=== PATIENT | female | born 1980 | race Caucasian/White ===

== ENCOUNTER 2021-02-08 10:28 | Emergency (ER) | payer OTHER, SELFPAY ==
[2021-02-08] VITALS (7 sets, daily range): BP systolic 146–161; BP diastolic 93–112; PULSE 104–123; RESP 16–24; TEMP 36.6–37.1; O2SAT 94–95; BMI 46.3
--- NOTE | 2021-02-08 10:36 | RAD_ITS ---
STUDY: X-RAY CHEST REASON FOR EXAM: Female, 40 years old. Cough TECHNIQUE: Single AP portable view of the chest. COMPARISON: None. FINDINGS: The lungs are clear and expanded. There is no demonstrated pleural abnormality. Normal size heart. Normal mediastinum and george. Normal visualized pulmonary arteries. Normal visualized aortic arch and descending thoracic aorta. Normal visualized thoracic spine. Normal visualized ribs, clavicles, and shoulders. There is no demonstrated abnormality of the visualized soft tissue structures of the upper abdomen. RAD/Chest 1 View (Portable) IMPRESSION: Normal x-ray examination of the chest. Electronically Signed: Rashad Herrera MD at 11:34 EDT , Service support ,
--- NOTE | 2021-02-08 10:40 | ED.VIS.DYS ---
HPI History of Present Illness Chief Complaint: Shortness of Breath Informant: patient Onset/Context/Timing Onset: Days Context: gradual Timing: Continuous Quality: Positive for Dyspnea on exertion Current Severity: Moderate Maximum Severity: Moderate Worsened by: Exertion and Coughing Relieved by: Nothing Associated Symptoms cough Chest Pain: Positive for Pleuritic Narrative Narrative: Patient is a 40-year-old female with medical history significant for hypertension who presents to the emergency department with cough and shortness of breath. The patient states that her and 2 children have tested positive for Covid. She states she had symptoms for about 11 days. She states everyone else was getting better. She states that today, she does feel like she cannot catch her breath or take a deep breath. She has had intermittent fever. She does not cough. She is mildly nauseated. She denies any chest pain. [facility] Medical History (Updated 02/08/21 @ 11:21 by Joanie Rose RN) Water retention Home Medications hydrochlorothiazide 25 mg PO DAILY 02/08/21 [History Last Taken Unknown] potassium chloride [Klor-Con M20] 40 meq PO DAILY #10 tablet 02/08/21 [Rx Last Taken Unknown] Allergy/AdvReac Type Severity Reaction Status Date / Time No Known Allergies Allergy Verified 02/08/21 10:32 Social History Smoking Status: Never smoker ROS ROS ED Constitutional Constitutional ED: Denies chills or fever(s) Eyes Eyes: Denies blurry vision or change in vision ENT ENT ED: Denies ear pain or sore throat Cardiovascular Cardiovascular: Denies chest pain or palpitations Respiratory/Chest Respiratory/Chest: Reports cough and dyspnea; Denies dyspnea on exertion Gastrointestinal Gastrointestinal: Reports nausea; Denies abdominal pain or vomiting Genitourinary Genitourinary ED: Denies dysuria or urinary frequency Musculoskeletal Musculoskeletal: Denies arthralgias or myalgias Integumentary Denies rash Neurologic Neurologic: Denies headache(s) or paresthesias Psychiatric Psychiatric: Denies anxiety or depression Endocrine Endocrinology: Denies polydipsia or polyuria Allergic/Immunologic Allergic/Immunologic ED: Denies urticaria EXAM Physical Exam Const Vital Signs: 02/08/21 10:29 02/08/21 11:18 02/08/21 11:22 Temperature 98 F 98.2 F Temperature Source Temporal Temporal Pulse Rate 123 H 111 H Respiratory Rate 22 H 24 H Respiratory Effort Normal Respiratory Depth Normal Respiratory Pattern Normal Blood Pressure 161/112 H 146/95 H Blood Pressure Mean 128 112 Pulse Ox 95 95 Oxygen Delivery Method Room Air Room Air Room Air 02/08/21 12:13 Temperature 98.1 F Temperature Source Temporal Pulse Rate 111 H Respiratory Rate 16 Respiratory Effort Respiratory Depth Respiratory Pattern Blood Pressure 146/97 H Blood Pressure Mean 113 Pulse Ox 94 Oxygen Delivery Method Room Air Positive well nourished and well developed General Appearance ED: well developed HEENT Reports normocephalic, head/scalp atraumatic and moist mucous membranes Eyes PERRL and EOMs intact bilaterally Neck no lymphadenopathy and supple General: Negative for tenderness Chest Wall inspection of chest normal Resp normal respiratory effort Auscultation: diminished lung sounds Cardio regular rate, regular rhythm and no murmurs GI normal to inspection, nondistended, normoactive bowel sounds Palpation: Negative for tender, guarding or rebound tenderness present Back/Spine no CVA tenderness Cervical Spine: Negative for cervical spine tenderness Thoracic Spine / Upper Back: Negative for thoracic spinal tenderness Extremity normal to inspection General Extremety ED: Negative for tenderness Neuro oriented x3 and CN's II-XII intact bilaterally Neuro Narrative: No focal deficits appreciated. Sensorium / Orientation: alert Psych mental status grossly normal Skin no rashes or lesions noted, no wounds and skin turgor normal MDM MDM MDM Narrative Medical decision making narrative: The patient presents with shortness of breath. She is had Covid symptoms for about 10 days. On arrival, she is mildly tachycardic. Metabolic work-up was pursued. Patient underwent screening lab evaluation. She is not anemic. Her D-dimer was negative. Patient was found to be rather significantly hypokalemic and this was replaced orally. Her chest x-ray does not show any focal infiltrative process. On reevaluation, the patient is able to ambulate without hypoxia. I am going to continue her on potassium placement for the next week. I do feel that she is safe for discharge home. She is comfortable with this plan of care. Impression 1. COVID-19 2. Hypokalemia Lab Data Attestation: I reviewed the patient's lab results. Labs: Laboratory Results - last 24 hr 02/08/21 02/08/21 02/08/21 11:20 11:20 11:20 WBC 5.5 RBC 4.86 Hgb 14.3 Hct 42.1 MCV 86.6 MCH 29.4 MCHC 34.0 RDW Std Deviation 39.0 RDW Coeff of Juan 12.3 Plt Count 172 MPV 9.6 Immature Gran % (Auto) 0.500 Neut % (Auto) 76.2 H Lymph % (Auto) 15.2 L [place] % (Auto) 7.7 Eos % (Auto) 0.0 Baso % (Auto) 0.4 Absolute Neuts (auto) 4.2 Absolute Lymphs (auto) 0.83 Nucleated RBC % 0 D-Dimer Quant (PE/DVT) 0.42 Sodium 138 Potassium 2.8 L Chloride 98 Carbon Dioxide 31.0 Anion Gap 9 BUN 6 L Creatinine 0.58 Estim Creat Clear Calc 109.11 Est GFR (MDRD) Af Amer 146 Est GFR (MDRD) Non-Af 121 BUN/Creatinine Ratio 10.3 Glucose 125 H Lactic Acid Calcium 8.5 Total Bilirubin 0.40 AST 29 ALT 49 Alkaline Phosphatase 77 Total Protein 7.9 Albumin 3.6 Globulin 4.3 H Albumin/Globulin Ratio 0.8 L 02/08/21 11:20 WBC RBC Hgb Hct MCV MCH MCHC RDW Std Deviation RDW Coeff of Juan Plt Count MPV Immature Gran % (Auto) Neut % (Auto) Lymph % (Auto) [place] % (Auto) Eos % (Auto) Baso % (Auto) Absolute Neuts (auto) Absolute Lymphs (auto) Nucleated RBC % D-Dimer Quant (PE/DVT) Sodium Potassium Chloride Carbon Dioxide Anion Gap BUN Creatinine Estim Creat Clear Calc Est GFR (MDRD) Af Amer Est GFR (MDRD) Non-Af BUN/Creatinine Ratio Glucose Lactic Acid 1.0 Calcium Total Bilirubin AST ALT Alkaline Phosphatase Total Protein Albumin Globulin Albumin/Globulin Ratio Radiography Chest X-Ray - ED: 1 View, Read by ED Physician, Read by Radiologist, Unchanged, Heart, Lungs, Mediastinum, Bony Structures and No Acute Disease Diagnostic Testing: Radiology Impression Chest X-Ray 02/08/21 10:36 IMPRESSION: Normal x-ray examination of the chest. Electronically Signed: Rashad Herrera MD at 11:34 EDT , Service support , EKG Initial EKG: Attestation: I personally reviewed and interpreted this EKG as follows: Interpretation: Sinus Rhythm Prior: Unchanged Discharge Plan Triage Chief Complaint: Shortness of Breath ED Provider: Dontae Rodas Dx/Rx/DC Orders Instructions: Coronavirus Disease 2019 (COVID-19): Caring for Yourself or Others Prescriptions: New potassium chloride [Klor-Con M20] 20 mEq tablet,ER particles/crystals 40 meq PO DAILY Qty: 10 RF: 0 No Action hydrochlorothiazide 25 mg tablet 25 mg PO DAILY RF: 0 Primary Care Provider: Mahesh Bronson Referrals: Mahesh Bronson MD [Primary Care Provider] -
[2021-02-08 11:38] LABS: Absolute Lymphocyte Count 0.83 X10^3/uL (0.83-4.51); Absolute Neutrophil Count 4.2 X10^3/uL (2.0-7.7); Basophil# 0.02 X10^3/uL; Basophil% 0.4 % (0-1); Hematocrit 42.1 % (37-47); Hemoglobin 14.3 g/dL (12.0-15.0); Lymphocyte # 0.83 X10^3/ul (0.83-4.51); Lymphocyte % 15.2 % (19-41); Mean Corpuscular Hgb 29.4 pg (27.0-32.0); Mean Corpuscular Volume 86.6 fL (81-99); Mean Platelet Vol. 9.6 fl (6.2-12.0); Monocyte# 0.42 X10^3/uL; Monocyte% 7.7 % (0-10); NRBC Flagged by Analyzer 0 % (0-5); Neutrophil # 4.17 X10^3/uL (2.7-7.7); Neutrophil % 76.2 % (47-70); Platelet Count 172 K/mm3 (150-450); RBC Distribution Width CV 12.3 % (11.6-14.6); Red Blood Count 4.86 M/mm3 (4.2-5.4); White Blood Count 5.5 K/mm3 (4.4-11.0)
[2021-02-08 11:45] LABS: D-Dimer Quantitative (DVT/PE) 0.42 FEU/ug/m (0.27-0.49)
[2021-02-08 11:48] LABS: ALB/GLOB Ratio 0.8 RATIO (0.9-2.4); AST(SGOT) 29 U/L (15-37); Alanine Aminotransfer ALT/SGPT 49 U/L (13-56); Albumin, Serum 3.6 g/dL (3.2-5.0); Alkaline Phosphatase 77 U/L (45-117); Anion Gap 9 (5-15); BUN 6 mg/dL (7-18); BUN/Creat Ratio 10.3 RATIO (10-20); Calcium,Total 8.5 mg/dL (8.5-10.1); Chloride 98 mmol/L (98-107); Creatinine, Serum 0.58 mg/dL (0.55-1.02); EST Glomerular Filtration Rate 121 mL/min (>60); Est Glom Filt Rate - Afr Amer 146 mL/min (>60); Estimated Creatinine Clearance 109.11 ml/min; Globulin 4.3 g/dL (2.2-4.2); Glucose 125 mg/dL (74-106); Potassium 2.8 mmol/L (3.5-5.1); Protein, Total 7.9 g/dL (6.4-8.2); Sodium Level 138 mmol/L (136-145)
[2021-02-08] MEDS: Potassium Chloride Oral Tablet 20 MEQ 60 MEQ PO (12:12)
== END 2021-02-08 12:43 | disposition home or self-care (01) ==
LOC: ED 11:13
PROVIDERS: Emergency Provider Emergency Medicine; PCP Family Medicine
DX: U07.1 COVID-19 (principal); E87.6 Hypokalemia; I10 Essential (primary) hypertension; Z79.899 Other long term (current) drug therapy
CPT/HCPCS: 36415; 71045; 80053; 83605; 85025; 85379; 87040; 87426; 99284; A4216

== ENCOUNTER → 2021-04-18 | Outpatient (CLI) | payer OTHER, SELFPAY ==
[2021-04-18 11:26] VITALS: BMI 46.3
--- NOTE | 2021-04-18 13:00 | LES_PTH ---
PATIENT: DARIUS TORRES LOC: [facility] U#:[id number] AGE/SX: 40/F ROOM: RE04/18/[address]: Dr. Jonny Canales MD : 1980 BED: DIS: 04/18/2021 SPEC #: [id number] RECD: 04/18/21 15:48 STATUS: RAO HERNANDEZ #: [id number] AVA: 04/18/21 13:[address]: Jonny Canales DEPT: SURGICAL PATHOLOGY RECD BY: Amy Timmons ENTERED: 04/19/21 12:26 SP TYPE: Lesion OTHR DR: Dr. Mahesh Bronson MD Tissues: Skin of scalp, NOS Procedures: Surgery Specimen Level IV HEADER OPERATION: Excision scalp lesion PRE-OP DIAGNOSIS: Neoplasm scalp TISSUE SUBMITTED: Scalp tissue MICROSCOPIC DIAGNOSIS Lesion of scalp, biopsy: Benign polypoid keratosis with seborrheic keratosis-like features, excised. AM:angel 04/20/2021 COMMENT Case has been reviewed in consultation with Dr. Patel who concurs with the above diagnosis. IDC:SJ MICROSCOPIC DESCRIPTION Slides are reviewed. GROSS DESCRIPTION Received in fixative is one container labeled with the patient's name and designated scalp. The specimen consists of a triangular piece of riddle-white skin measuring 1 x 0.5 x 0.3 cm. The specimen is inked, bisected and submitted entirely in one cassette. / CAMPOS:angel 04/19/21 TC:5 CPT: 92859
== END | disposition home or self-care (01) ==
LOC: LABSPEC 16:10
PROVIDERS: PCP Family Medicine; Referring Provider Surgery; Visit Provider Surgery
DX: L82.1 Other seborrheic keratosis (principal)
CPT/HCPCS: 88305

== ENCOUNTER 2021-07-26 10:19 | Day surgery (SDC) | payer OTHER, SELFPAY ==
--- NOTE | 2021-07-24 09:55 | PCM.HP.BLA ---
History and Physical Date of Admission: 07/26/21 HPI: The patient is a 41 year old female presenting for pre-operative visit. She is scheduled for hysteroscopy with endometrial ablation , for menorrhagia on 07/26/21. Procedure discussed along with risks, benefits and complications. Other alternatives discussed for management. Consent form signed? Yes. ? ? PAST MEDICAL HISTORY PAST MEDICAL HISTORY Diagnosis Date ? Papanicolaou smear of cervix with atypical squamous cells of undetermined significance (ASC-US) ? ? ? PAST SURGICAL HISTORY PAST SURGICAL HISTORY Procedure Laterality Date ? COLPOSCOPY (VAGINOSCOPY) ? 05/02/1998 ? Colposcopy ? CYST/MOLE REMOVAL ? 04/2021 ? head ? PAST SURGICAL HISTORY OF ? ? ? wisdom teeth ? REM LESION FACE,EAR,EYE 1.1-2 CM ? 05/20/2009 ? Exc. right zoroastrianism skin lesion ? REM LESION NEC,HND,SCAL,FEET,GENITALIA 1.1-2.0CM ? 04/01/2009 ? Exc. scalp wens x 3 ? REMOVAL ADENOIDS,PRIMARY,<12 Y/O ? ? ? Adenoidectomy ? REMOVAL OF TONSILS,<12 Y/O ? ? ? Tonsillectomy ? ? ? CURRENT MEDICATIONS Current Outpatient Medications Medication Sig Dispense Refill ? diclofenac XR (VOLTAREN-XR) 100 mg Tb24 TAKE ONE TABLET BY MOUTH ONCE DAILY WITH MEALS ? ? ? hydroCHLOROthiazide (HYDRODIURIL, ESIDRIX) 25 mg tablet Take 25 mg by mouth every morning. ? ? ? MULTIVITAMIN ORAL Take by mouth. ? ? ? ascorbic acid (VITAMIN C ORAL) Take by mouth. ? ? ? cholecalciferol, vitamin D3, (VITAMIN D3 ORAL) Take by mouth. ? ? ? fluticasone (FLONASE) 50 mcg/actuation nasal spray Use 2 Sprays in each nostril once daily. Rinse mouth after use. 1 Bottle 1 ? oxymetazoline (AFRIN, OXYMETAZOLINE,) 0.05 % nasal spray Use 2 Sprays in the nose twice daily. (Patient not taking: Reported on 06/15/2021 ) 1 Bottle 0 ? guaiFENesin (MUCINEX) 600 mg 12 hr tablet Take 2 tablets by mouth twice daily. (Patient not taking: Reported on 06/15/2021 ) 30 tablet 0 ? loratadine (CLARITIN) 10 mg tablet Take 1 tablet by mouth once daily. (Patient not taking: Reported on 06/15/2021 ) 14 tablet 0 ? No current facility-administered medications for this visit. ? ? ALLERGIES: Patient has no known allergies. ? PERSONAL HISTORY: SOCIAL HISTORY Social History ? Tobacco Use ? Smoking status: Never Smoker ? Smokeless tobacco: Never Used Vaping Use ? Vaping Use: Never used Substance Use Topics ? Alcohol use: No ? Drug use: No ? FAMILY HISTORY: FAMILY HISTORY FAMILY HISTORY Problem Relation Age of Onset ? Hypertension Father ? ? Psychiatry Father ? ? MANIC DEPRESSION ? Breast Cancer Maternal Grandmother ? ? Diabetes Maternal Grandfather ? ? Stroke Maternal Grandfather ? ? Heart Paternal Grandmother ? ? CHF ? Heart Paternal Grandfather ? ? CHF ? ? REVIEW OF SYMPTOMS: GENERAL: denies fevers or chills ENDOCRINOLOGY: has not been on steroids Cardiology : denies palpitations or chest pain Respiratory: denies SOB or cough Hematology: denies history of prolonged bleeding or easy bruising or VTE Allergy: Denies history of personal or family history of allergy to anesthesia ? PHYSICAL EXAMINATION: ? VITALS: Blood pressure 118/78, weight 287 lb (130.2 kg), last menstrual period 06/06/2021. ? GENERAL: The patient is well nourished, well hydrated in no acute distress. , The patient is oriented to time, place, and person. NECK: Supple. No lynphadenopathy, normal thyroid, no thyromegaly. LUNGS: Clear to auscultation bilaterally. no wheezes, rhonchi or rales HEART: Regular rate and rhythm, Normal heart sounds and No murmurs or gallops 07/02 benign emb 06/15/21 neg pap and HRHPV 07/02/21 pelvic US normal size uterus no abnormalities noted ? ? IMPRESSION: Heavy menstrual bleeding, has completed childbearing ? PLAN: The risks/benefits/alternatives and personal involved for the planned hysteroscopy: Atrial ablation were reviewed with the patient. Her questions were answered to her satisfaction and she desires to proceed. Consent was signed. I reviewed with her postop instructions and expectations. ? ? I have reviewed and updated past medical and surgical history, medications and allergies This H&P was completed in my office on 07/23/21 Assessment & Plan Assessment/Plan (1) Abnormal uterine bleeding (AUB):
[2021-07-26] VITALS (7 sets, daily range): BP systolic 104–128; BP diastolic 58–90; PULSE 86–97; RESP 16; TEMP 36.2–36.4; O2SAT 100; BMI 49.1
[2021-07-26 10:46] LABS: Internal QC Validated? YES +Cl - CLEAR BKGD; Pregnancy, Urine Negative Negative
[2021-07-26] MEDS: Celecoxib 200 MG Capsule 400 MG PO (10:48)
[2021-07-26] MEDS: Acetaminophen 500 MG Tablet 1000 MG PO (10:48)
[2021-07-26] MEDS: Lactated Ringers 1,000 ML 15 ML IV (10:50)
[2021-07-26 11:05] LABS: Hematocrit 40.7 % (37-47); Hemoglobin 13.7 g/dL (12.0-15.0); Mean Corp Hgb Conc 33.7 g/dL (32-36); Mean Corpuscular Hgb 29.8 pg (27.0-32.0); Mean Corpuscular Volume 88.5 fL (81-99); Mean Platelet Vol. 8.9 fl (6.2-12.0); Platelet Count 273 K/mm3 (150-450); RBC Distribution Width CV 12.6 % (11.6-14.6); RBC Distribution Width SD 40.6 fl (35.1-43.9); White Blood Count 9.2 K/mm3 (4.4-11.0)
--- NOTE | 2021-07-26 12:09 | PCM.DC ---
Discharge Instructions Diet Discharge Diet: No restrictions Activity May resume sexual activity in: 2 weeks Lifting Restrictions: none Dressing / Incision Call your doctor if your incision/area has: Sudden Increased Bleeding and Foul Smelling Discharge Call your doctor if you observe: Fever of 101 or Higher and Using more than 1 pad per hour (for 2 hrs in a row) Follow Up Care Please Follow Up With: Yvette Rm MD When: 2-4 weeks or as needed. Call [phone] to make an appointment or with any concerns. Test Results: Test results from this visit will be discussed in further detail at your follow-up appointment, if applicable. Discharge Plan Admission Primary Reason for Your Visit: ENdometrial ablation Attending Provider: Yvette Rm Primary Care Provider: Mahesh Bronson Discharge Orders/Prescriptions Prescriptions: Continued hydrochlorothiazide 25 mg tablet 25 mg PO DAILY RF: 0 diclofenac sodium 100 mg Tablet Extended Release 24 Hr 100 mg PO DAILY RF: 0 cyanocobalamin (vitamin B-12) [Vitamin B-12] 1,000 mcg Tablet 1,000 mcg PO DAILY RF: 0 ascorbic acid (vitamin C) 1,000 mg Capsule, Extended Release 1 cap PO DAILY RF: 0 cholecalciferol (vitamin D3) [Vitamin D3] 50 mcg (2,000 unit) Tablet 50 mcg PO DAILY RF: 0 Referrals / Follow Up: Mahesh Bronson MD [Primary Care Provider] - Disposition Disposition (needs filled in before D/C Order can be placed): Home, Self Care
--- NOTE | 2021-07-26 12:10 | OP.PCM_ITS ---
Problems Associated Problem List Diagnoses (1) Abnormal uterine bleeding (AUB): Report of Operation Date of Procedure: 07/26/21 Pre-Operative Diagnosis: abnormal uterine bleeding Post-Operative Diagnosis: same Surgery/Procedure Performed:: Hysteroscopy with endometrial ablation Surgeon: Yvette Rm animal control specialist: None Type of Anesthesia: MAC/Supplemental/Local Anesthesiologist: Rashad Moon Special Medications: none Drains: none Description of Procedure: The patient was taken to the OR where she was prepped and draped in dorsal lithotomy position. The weighted speculum was placed in the vagina and the anterior lip of the cervix was grasped with a single-tooth tenaculum. A paracervical block was administered with 1% lidocaine with 1- 100,000 epinephrine solution. The cervix was dilated serially with Hegar dilators. The 5mm hysteroscope was placed into the uterine cavity and the above findings were noted. Bilateral tubal ostia were identified. The uterus sounded to 9 cm and the cervical length was 4 cm. The endometrial cavity length was 5 cm. The hysteroscope was removed. The Evelina device was set to 5 cm. The instrument was then seated into the endometrial cavity and the indicator was in the green. The cervical seal balloon was inflated and the uterine integrity test was passed. The ablation procedure was initiated and completed without interruption. During the ablation procedure gentle traction was held on the tenaculum and the Evelina device was held up against the uterine fundus. When the ablation procedure was completed the Evelina was removed. The tenaculum was removed and the tenaculum site was noted to be hemostatic. All sponge and needle counts were correct. A vaginal sweep was performed by me. The patient was awakened and taken to the recovery room in stable condition. Hysteroscopic ins: 250cc normal saline Hysteroscopic outs:100cc Findings: Endometrial cavity: Normal, no fibroids or polyps noted, lush endometrium Cervix: Normal Vagina: Normal Grafts/Implants Used: none Procedure Start Time: 12:18 Procedure Stop Time: 12:27 Complications none Admit VTE Documentation VTE Present on Admission: No VTE Mechan Device Prophylaxis: SCD's VTE Pharm Prophylaxis ordered?: No Reason prophylaxis not ordered:: Procedure Not Indicated
[2021-07-26] MEDS: Lidocaine 1% /Epi 1:100 (20ml) 20 ML Vial (12:14)
== END 2021-07-26 13:35 | disposition home or self-care (01) ==
LOC: SDC 10:20 → AC 10:28
PROVIDERS: Anesthesiology; PCP Family Medicine; Referring Provider Obstetrics & Gynecology; Visit Provider Obstetrics & Gynecology
PROC: 0U5B8ZZ Destruction of Endometrium, Via Natural or Artificial Opening Endoscopic (ICD-10-PCS; CPT 58558; principal; 2021-07-26 11:40)
DX: N92.0 Excessive and frequent menstruation with regular cycle (principal); I10 Essential (primary) hypertension; M19.90 Unspecified osteoarthritis, unspecified site; Z79.899 Other long term (current) drug therapy
CPT/HCPCS: 00952; 58563; 81025; 84443; 85027; 87426; C9803; J7120; J2405

== ENCOUNTER → 2022-08-22 | Outpatient (CLI) | payer OTHER, SELFPAY ==
--- NOTE | 2022-08-20 10:42 | HP.PCM_ITS ---
History and Physical Date of Admission: 08/29/22 HPI: The patient is a 42 year old female presenting for pre-operative visit. She is scheduled for total laparoscopic hysterectomy with bilateral salpingectomy, for dysmenorrhea and post ablation syndrome on 08/29/2022. Procedure discussed along with risks, benefits and complications. Other alternatives discussed for management. Consent form signed? Yes. ? ? PAST MEDICAL HISTORY PAST MEDICAL HISTORY Diagnosis Date ? Papanicolaou smear of cervix with atypical squamous cells of undetermined significance (ASC-US) ? ? ? PAST SURGICAL HISTORY PAST SURGICAL HISTORY Procedure Laterality Date ? ADENOIDECTOMY PRIMARY <AGE 12 ? ? ? Adenoidectomy ? COLPOSCOPY CERVIX UPPER/ADJACENT VAGINA ? 05/02/1998 ? Colposcopy ? CYST/MOLE REMOVAL ? 04/2021 ? head ? HYSTEROSCOPY ENDOMETRIAL ABLATION ? 07/26/2021 ? [place] endometrial ablation ? PAST SURGICAL HISTORY OF ? ? ? wisdom teeth ? REM LESION FACE,EAR,EYE 1.1-2 CM ? 05/20/2009 ? Exc. right scientologist skin lesion ? REM LESION NEC,HND,SCAL,FEET,GENITALIA 1.1-2.0CM ? 04/01/2009 ? Exc. scalp wens x 3 ? TONSILLECTOMY PRIMARY/SECONDARY <AGE 12 ? ? ? Tonsillectomy ? ? ? CURRENT MEDICATIONS Current Outpatient Medications Medication Sig Dispense Refill ? furosemide (LASIX) 20 mg tablet TAKE ONE TABLET BY MOUTH EVERY MORNING NEEDED ? ? ? Norethindrone, Contraceptive, 0.35 mg tablet Take 1 tablet by mouth once daily. (Patient not taking: Reported on 08/05/2022) 28 tablet 12 ? hydroCHLOROthiazide (HYDRODIURIL, ESIDRIX) 25 mg tablet Take 25 mg by mouth every morning. ? ? ? ascorbic acid (VITAMIN C ORAL) Take by mouth. ? ? ? cholecalciferol, vitamin D3, (VITAMIN D3 ORAL) Take by mouth. ? ? ? fluticasone (FLONASE) 50 mcg/actuation nasal spray Use 2 Sprays in each nostril once daily. Rinse mouth after use. 1 Bottle 1 ? loratadine (CLARITIN) 10 mg tablet Take 1 tablet by mouth once daily. 14 tablet 0 ? No current facility-administered medications for this visit. ? ? ALLERGIES: Patient has no known allergies. ? PERSONAL HISTORY: SOCIAL HISTORY Social History ? Tobacco Use ? Smoking status: Never ? Smokeless tobacco: Never Vaping Use ? Vaping Use: Never used Substance Use Topics ? Alcohol use: No ? Drug use: No ? FAMILY HISTORY: FAMILY HISTORY FAMILY HISTORY Problem Relation Age of Onset ? Hypertension Father ? ? Psychiatry Father ? ? MANIC DEPRESSION ? Breast Cancer Maternal Grandmother ? ? Diabetes Maternal Grandfather ? ? Stroke Maternal Grandfather ? ? Heart Paternal Grandmother ? ? CHF ? Heart Paternal Grandfather ? ? CHF ? ? REVIEW OF SYMPTOMS: GENERAL: denies fevers or chills ENDOCRINOLOGY: has not been on steroids Cardiology : denies palpitations or chest pain Respiratory: denies SOB or cough Hematology: denies history of prolonged bleeding or easy bruising or VTE Allergy: Denies history of personal or family history of allergy to anesthesia ? PHYSICAL EXAMINATION: ? VITALS: Blood pressure 128/84, pulse 100, resp. rate 16, height 5' 5 (1.651 m), weight 290 lb (131.5 kg), last menstrual period 04/27/2022, SpO2 98 %. ? GENERAL: The patient is well nourished, well hydrated in no acute distress. , The patient is oriented to time, place, and person. NECK: Supple. No lynphadenopathy, normal thyroid, no thyromegaly. LUNGS: Clear to auscultation bilaterally. no wheezes, rhonchi or rales HEART: Regular rate and rhythm, Normal heart sounds, and No murmurs or gallops ? IMPRESSION: 42-year-old female with dysmenorrhea, status post endometrial ablation syndrome. ? PLAN: The risks/benefits/alternatives and personal involved for the planned TLH, bilateral salpingectomy were reviewed with the patient. Her questions were answered to her satisfaction and she desires to proceed. Consent was signed. I reviewed with her postop instructions and expectations. ? ? I have reviewed and updated past medical and surgical history, medications and allergies Assessment & Plan Assessment/Plan (1) Post endometrial ablation syndrome: (2) Dysmenorrhea:
[2022-08-24 09:21] LABS: Hematocrit 45.3 % (37-47); Hemoglobin 15.1 g/dL (12.0-15.0); Mean Corp Hgb Conc 33.3 g/dL (32-36); Mean Corpuscular Hgb 29.1 pg (27.0-32.0); Mean Corpuscular Volume 87.3 fL (81-99); Mean Platelet Vol. 9.4 fl (6.2-12.0); Platelet Count 283 K/mm3 (150-450); RBC Distribution Width CV 12.1 % (11.6-14.6); RBC Distribution Width SD 38.6 fl (35.1-43.9); Red Blood Count 5.19 M/mm3 (4.2-5.4); White Blood Count 7.3 K/mm3 (4.4-11.0)
[2022-08-24 09:44] LABS: Anion Gap 3 (5-15); BUN 12 mg/dL (7-18); BUN/Creat Ratio 15.3 RATIO (10-20); Calcium,Total 9.2 mg/dL (8.5-10.1); Chloride 101 mmol/L (98-107); Creatinine, Serum 0.78 mg/dL (0.55-1.02); EST Glomerular Filtration Rate 85 mL/min (>60); Est Glom Filt Rate - Afr Amer 102 mL/min (>60); Glucose 326 mg/dL (74-106); Magnesium 2.1 mg/dL (1.6-2.6); Potassium 3.8 mmol/L (3.5-5.1); Sodium Level 135 mmol/L (136-145)
== END | disposition home or self-care (01) ==
LOC: PAT 09-19 15:21
PROVIDERS: Anesthesiology; PCP Family Medicine; Referring Provider Obstetrics & Gynecology; Visit Provider Obstetrics & Gynecology
DX: N94.6 Dysmenorrhea, unspecified (principal)
CPT/HCPCS: 36415; 80048; 83735; 85027; 86850; 86900; 86901

== ENCOUNTER 2023-06-05 10:42 | Day surgery (SDC) | payer OTHER, SELFPAY ==
--- NOTE | 2023-05-19 17:00 | PCM.HP.BLA ---
History and Physical Date of Admission: 06/05/23 Normal appearing anteverted uterus that measures 80 mm x 45 mm x 51 mm. The central endometrium complex measures 4.7 mm in combined thickness. No abnormal blood flow to suggest a polyp or focal endometrial pathology is observed within the endometrial complex. The contour of the endometrial cavity was normal on 3-D imaging. Both ovaries are visualized and appear normal. No adnexal masses were observed. There is no free fluid visualized in the peritoneal cavity. Recommendations Follow up as clinically indicated. 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 Endometrial thickness, total 4.7 mm Right Ovary Rt ovary: Visualized Rt ovary D1 26 mm Rt ovary D2 19 mm Rt ovary D3 20 mm Rt ovary Vol 5.2 cm? Left Ovary Lt ovary: Visualized Lt ovary D1 26 mm Lt ovary D2 21 mm Lt ovary D3 24 mm Lt ovary Vol 6.7 cm? Assessment & Plan Assessment/Plan (1) Post endometrial ablation syndrome: (2) Dysmenorrhea:
--- NOTE | 2023-05-20 16:22 | PCM.HP.BLA ---
History and Physical Date of Admission: 06/05/23 HPI: The patient is a 43 year old female presenting for pre-operative visit. She is scheduled for TLH, bilateral salpingectomy, for postendometrial ablation pain on 06/05/23. Procedure discussed along with risks, benefits and complications. Other alternatives discussed for management. Consent form signed? Yes. ? ? PAST MEDICAL HISTORY PAST MEDICAL HISTORY Diagnosis Date ? Papanicolaou smear of cervix with atypical squamous cells of undetermined significance (ASC-US) ? ? ? PAST SURGICAL HISTORY PAST SURGICAL HISTORY Procedure Laterality Date ? ADENOIDECTOMY PRIMARY <AGE 10 ? ? ? Adenoidectomy ? COLPOSCOPY CERVIX UPPER/ADJACENT VAGINA ? 05/02/1998 ? Colposcopy ? CYST/MOLE REMOVAL ? 04/2021 ? head ? HYSTEROSCOPY ENDOMETRIAL ABLATION ? 07/26/2021 ? [place] endometrial ablation ? PAST SURGICAL HISTORY OF ? ? ? wisdom teeth ? REM LESION FACE,EAR,EYE 1.1-2 CM ? 05/20/2009 ? Exc. right confucianist skin lesion ? REM LESION NEC,HND,SCAL,FEET,GENITALIA 1.1-2.0CM ? 04/01/2009 ? Exc. scalp wens x 3 ? TONSILLECTOMY PRIMARY/SECONDARY <AGE 10 ? ? ? Tonsillectomy ? ? ? CURRENT MEDICATIONS Current Outpatient Medications Medication Sig Dispense Refill ? ascorbic acid (VITAMIN C ORAL) Take by mouth. ? ? ? fluticasone (FLONASE) 50 mcg/actuation nasal spray Use 2 Sprays in each nostril once daily. Rinse mouth after use. 1 Bottle 1 ? loratadine (CLARITIN) 10 mg tablet Take 1 tablet by mouth once daily. 14 tablet 0 ? furosemide (LASIX) 20 mg tablet TAKE ONE TABLET BY MOUTH EVERY MORNING NEEDED (Patient not taking: Reported on 05/19/2023) ? ? ? hydroCHLOROthiazide (HYDRODIURIL, ESIDRIX) 25 mg tablet Take 25 mg by mouth every morning. (Patient not taking: Reported on 05/19/2023) ? ? ? cholecalciferol, vitamin D3, (VITAMIN D3 ORAL) Take by mouth. (Patient not taking: Reported on 05/19/2023) ? ? ? No current facility-administered medications for this visit. ? ? ALLERGIES: Patient has no known allergies. ? PERSONAL HISTORY: SOCIAL HISTORY Social History ? Tobacco Use ? Smoking status: Never ? Smokeless tobacco: Never Vaping Use ? Vaping Use: Never used Substance Use Topics ? Alcohol use: No ? Drug use: No ? FAMILY HISTORY: FAMILY HISTORY FAMILY HISTORY Problem Relation Age of Onset ? Hypertension Father ? ? Psychiatry Father ? ? MANIC DEPRESSION ? Breast Cancer Maternal Grandmother ? ? Diabetes Maternal Grandfather ? ? Stroke Maternal Grandfather ? ? Heart Paternal Grandmother ? ? CHF ? Heart Paternal Grandfather ? ? CHF ? ? REVIEW OF SYMPTOMS: GENERAL: denies fevers or chills ENDOCRINOLOGY: has not been on steroids Cardiology : denies palpitations or chest pain Respiratory: denies SOB or cough Hematology: denies history of prolonged bleeding or easy bruising or VTE Allergy: Denies history of personal or family history of allergy to anesthesia ? PHYSICAL EXAMINATION: ? VITALS: Blood pressure 128/86, pulse 81, resp. rate 16, height 5' 5 (1.651 m), weight 261 lb (118.4 kg), last menstrual period 04/27/2022, SpO2 100 %. ? GENERAL: The patient is well nourished, well hydrated in no acute distress. , The patient is oriented to time, place, and person. NECK: Supple. No lynphadenopathy, normal thyroid, no thyromegaly. LUNGS: Clear to auscultation bilaterally. no wheezes, rhonchi or rales HEART: Regular rate and rhythm, Normal heart sounds, and No murmurs or gallops ? Normal appearing anteverted uterus that measures 80 mm x 45 mm x 51 mm. The central endometrium complex measures 4.7 mm in combined thickness. No abnormal blood flow to suggest a polyp or focal endometrial pathology is observed within the endometrial complex. The contour of the endometrial cavity was normal on 3-D imaging. Both ovaries are visualized and appear normal. No adnexal masses were observed. There is no free fluid visualized in the peritoneal cavity. Recommendations Follow up as clinically indicated. History MOBILE EQUIPMENT OPERATOR History Other: H/O endometrial ablation ? ? PELVIC US 08/2022 Method Transabdominal, transvaginal, 3D ultrasound examination, Color Doppler examination Uterus Uterus: Visualized Uterus position: anteverted Uterus long 80 mm Uterus ap 45 mm Uterus tr 51 mm Uterus Vol 96.3 cm? Endometrial thickness, total 4.7 mm Right Ovary Rt ovary: Visualized Rt ovary D1 26 mm Rt ovary D2 19 mm Rt ovary D3 20 mm Rt ovary Vol 5.2 cm? Left Ovary Lt ovary: Visualized Lt ovary D1 26 mm Lt ovary D2 21 mm Lt ovary D3 24 mm Lt ovary Vol 6.7 cm? ? IMPRESSION: postendometrial ablation sydrome w/ cyclic dysmenorrhea ? PLAN: The risks/benefits/alternatives and personal involved for the planned TLH, bilateral salpingectomy were reviewed with the patient. Her questions were answered to her satisfaction and she desires to proceed. Consent was signed. I reviewed with her postop instructions and expectations. ? ? I have reviewed and updated past medical and surgical history, medications and allergies Assessment & Plan Assessment/Plan (1) Post endometrial ablation syndrome:
[2023-05-24 09:56] LABS: Hematocrit 42.9 % (37-47); Hemoglobin 14.3 g/dL (12.0-15.0); Mean Corp Hgb Conc 33.3 g/dL (32-36); Mean Corpuscular Hgb 30.1 pg (27.0-32.0); Mean Corpuscular Volume 90.3 fL (81-99); Mean Platelet Vol. 9.2 fl (6.2-12.0); Platelet Count 249 K/mm3 (150-450); RBC Distribution Width CV 12.5 % (11.6-14.6); RBC Distribution Width SD 41.4 fl (35.1-43.9); Red Blood Count 4.75 M/mm3 (4.2-5.4); White Blood Count 9.3 K/mm3 (4.4-11.0)
[2023-05-24 10:33] LABS: AST(SGOT) 28 U/L (15-37); Alanine Aminotransfer ALT/SGPT 23 U/L (13-56); Albumin, Serum 3.7 g/dL (3.2-5.0); Alkaline Phosphatase 61 U/L (45-117); Anion Gap 2 (5-15); BUN 13 mg/dL (7-18); BUN/Creat Ratio 18.4 RATIO (10-20); Chloride 108 mmol/L (98-107); Creatinine, Serum 0.71 mg/dL (0.55-1.02); EST Glomerular Filtration Rate 95 mL/min (>60); Est Glom Filt Rate - Afr Amer 115 mL/min (>60); Globulin 3.8 g/dL (2.2-4.2); Glucose 110 mg/dL (74-106); Potassium 4.5 mmol/L (3.5-5.1); Protein, Total 7.5 g/dL (6.4-8.2); Sodium Level 139 mmol/L (136-145)
[2023-06-05] VITALS (9 sets, daily range): BP systolic 121–135; BP diastolic 76–88; PULSE 57–90; RESP 16–18; TEMP 36.6–36.9; O2SAT 99–100; BMI 44.4
[2023-06-05 11:09] LABS: Internal QC Validated? YES +Cl - CLEAR BKGD; Pregnancy, Urine Negative Negative
[2023-06-05] MEDS: Acetaminophen 500 MG Tablet 1000 MG PO (11:11)
[2023-06-05] MEDS: Gabapentin 600 MG Tablet PO (11:11)
[2023-06-05] MEDS: Celecoxib 200 MG Capsule 400 MG PO (11:12)
[2023-06-05] MEDS: Enoxaparin 40 MG/0.4 ML Syringe SC (11:12)
[2023-06-05] MEDS: Phenazopyridine 95 MG Tablet 190 MG PO (11:12)
[2023-06-05] MEDS: Scopolamine 1mg/72hr Patch 1 PATCH TD (11:13)
[2023-06-05] MEDS: Lactated Ringers 1,000 ML 15 ML IV (11:14)
[2023-06-05] MEDS: Magnesium 1 GM over 15 mins IV (11:15)
[2023-06-05 11:52] LABS: Bedside Glucose 126 mg/dL (74-106)
--- NOTE | 2023-06-05 13:15 | FALS_PTH ---
PATIENT: DARIUS TORRES LOC: [facility] U#:[id number] AGE/SX: 43/F ROOM: RE06/05/[address]: Dr. Yvette Rm MD : 1980 BED: DIS: 06/05/2023 SPEC #: [id number] RECD: 06/05/23 16:09 STATUS: RAO REEvans #: [id number] AVA: 06/05/23 13:[address]: Yvette Rm DEPT: SURGICAL PATHOLOGY RECD BY: Taiwo Cardenas ENTERED: 06/06/23 07:49 SP TYPE: FALL TUBES OTHR DR: Marylou Horton PA-C Tissues: A - Fallopian tube B - Fallopian tube C - Uterine cervix, NOS Procedures: Surgery Specimen Level II Surgery Specimen Level V HEADER OPERATION: ALEKSANDRS, TLH, LAVH, bilateral salpingectomy PRE-OP DIAGNOSIS: Post-endometrial ablation syndrome TISSUE SUBMITTED: A - Right fallopian tube, B - Left fallopian tube, C - Uterus and cervix MICROSCOPIC DIAGNOSIS A. Right fallopian tube, salpingectomy: Complete cross-sections of fallopian tube with no pathologic change. B. Left fallopian tube, salpingectomy: Complete cross-sections of fallopian tube with no pathologic change. C. Uterus, hysterectomy: Cervix - nabothian cysts and mild chronic inflammation. Endometrium - secretory endometrium. Denudation of mucosa consistent with previous ablation. Myometrium - No pathologic change. AM:angel 06/09/2023 MICROSCOPIC DESCRIPTION Slides are reviewed. GROSS DESCRIPTION A - Received in fixative is one container labeled with the patient's name and designated right fallopian tube. The specimen consists of a fallopian tube with an average length of 6.5 cm and has an average diameter of 0.6 cm. The fallopian tube has a normal fimbriated end. No mass lesions are identified. Dance Entertainer sections are submitted in one cassette. B - Received in fixative is one container labeled with the patient's name and designated left fallopian tube. The specimen consists of a fallopian tube with an average length of 5.5 cm and has an average diameter of 0.7 cm. The fallopian tube has a normal fimbriated end. No mass lesions are identified. Dance Entertainer sections are submitted in one cassette. C - Received in fixative is one container labeled with the patient's name and designated uterus. The specimen consists of a uterus with attached cervix measuring 8.7 x 6.0 x 4.6 cm and weighing 102 gm. The ectocervix is grossly unremarkable. The endocervical canal measures 3.2 cm in length and is grossly unremarkable. The triangular endometrial cavity measures 2.5 x 2.5 cm. The endometrium is thin, light riddle and measures <0.1 cm in thickness. The myometrium measures 2.0 cm in average thickness and is free of mass lesions. Dance Entertainer sections are submitted in six cassettes as follows: 1 - anterior cervix, 2 - posterior cervix, 3 & 4 - anterior myometrial wall, 5 & 6 - posterior myometrial wall. / AM:angel 06/06/2023 TC:3 CPT: 40988 x2, 06150
[2023-06-05] MEDS: Lactated Ringers @ 70 MLS/HR 70 ML IV (13:49)
[2023-06-05] MEDS: Cefazolin 2 GM in 0.9% Normal Saline (100mL Bag) 100 ML IV (13:51)
[2023-06-05] MEDS: dexAMETHasone 4 MG/ML Vial 8 MG IV (14:03)
[2023-06-05] MEDS: Bupivacaine 0.5% PF 10 ML VIAL ×2 (14:30)
[2023-06-05] MEDS: Lidocaine 1%/Epi 1:200 (30ml) 30 ML AMPUL (15:00)
[2023-06-05] MEDS: Ondansetron 4 MG/2 ML Vial IV (15:31)
--- NOTE | 2023-06-05 15:45 | OP.PCM_ITS ---
Problems Associated Problem List Diagnoses (1) Post endometrial ablation syndrome: (2) Abnormal uterine bleeding (AUB): Report of Operation Date of Procedure: 06/05/23 Pre-Operative Diagnosis: Postendometrial ablation syndrome, abnormal uterine bleeding Post-Operative Diagnosis: same Surgery/Procedure Performed:: LAVH, bilateral salpingectomy Description of Surgical Findings:: boggy enlarged uterus, normal tubes and ovaries and cervix Surgeon: Yvette Rm orthopedics pediatric physician: Yany Birmingham Type of Anesthesia: General Anesthesiologist: Alex Barroso Special Medications: none Specimen's removed: uterus, cervix and bilateral fallopian tubes Drains: hill Estimated Blood Loss (mL): 50 Fluids Replaced: 1200 Description of Procedure: The patient was taken to the operating room where she was prepped and draped in the dorsal lithotomy position. Her arms were tucked to the side and padded and her legs were placed in the blue stirrups. Care was taken to ensure that she was placed in a neurologically safe and neutral position. A weighted speculum was placed in the vagina and the anterior lip of the cervix was grasped with a single-tooth tenaculum. The uterus sounded to 9 centimeters. The [ZUMI] uterine manipulator was placed and secured. The Hill catheter was placed to straight drain. Attention was turned to the abdominal portion of the case. Before skin incisions were made they were infiltrated with 0.5% Marcaine solution for local anesthetic. A 5 mm intraumbilical incision was made and while tenting the anterior abdominal wall up with towel clamps a 5 mm blade less trocar and sleeve were advanced directly into the peritoneal cavity. Peritoneal placement was confirmed with the laparoscope the pneumoperitoneum was created, and the underlying abdominal contents were intact. The patient was placed in Trendelenburg and the above findings were noted. Right and left lateral 5 mm trochars were placed under direct visualization without difficulty. [The antimesenteric portion of the tube was clamped sealed and transected serially on both sides with the LigaSure device.] The round ligaments were c lamped sealed and transected and a window was made in the peritoneum. The utero-ovarian ligaments were then clamped, sealed and transected with the LigaSure device and the pedicles were hemostatic The bladder flap was dissected down with the LigaSure device and blunt dissection and the uterine arteries were then skeletonized. The uterine arteries were clamped, sealed and transected on both sides with the LigaSure device. At this point the pedicles were all examined and found to be hemostatic. Attention was turned to the vaginal portion of the case. 1% lidocaine with dilute epinephrine solution was used to infiltrate the anterior vaginal epithelium over the cervix. An incision was made from 3 to 9:00 across the anterior vaginal epithelium and the vaginal epithelium was dissected back with blunt sharp dissection. The anterior colpotomy incision was made. The vaginal epithelium on each side of the cervix at 3 and 9:00 was clamped, transected and suture ligated. The next pedicle contained the anterior peritoneum and part of the cardinal ligament. The pedicle was was clamped with a Leana clamp, transected and suture-ligated. Hemostasis was noted. The uterine fundus was brought through the anterior colpotomy incision. The uterosacral ligaments and vaginal cuff were secured with Leana clamps. The pedicles were transected. The uterus and cervix were then amputated and removed. The pedicles were secured with an 0 Vicryl suture. At this point, the pedicles were all examined and hemostasis was assured. [A [id number] was needed in the midline and the vaginal cuff between the uterosacrals to tack the peritoneum down to the posterior vaginal wall. ] The vaginal cuff was then closed in a horizontal fashion with interrupted 0 Vicryl [id number] sutures. Care was taken to secure the vagina to the uterosacral ligaments. A sponge stick was placed in the vagina. The laparoscope was reinserted into the abdomen and the pneumoperitoneum was re- created. The pedicles were reexamined and found to be hemostatic. The vaginal cuff was hemostatic. Both ureters were identified and seen peristalsing and nondilated at the completion of the procedure. [Franci was placed over the peritoneal edges and no active bleeding was noted through the Franci.] The right and left lateral ports were taken out and the sites were hemostatic. The pneumoperitoneum was released and even under low pressure there was no bleeding of any of the pedicles are vaginal cuff. The umbilical port was removed. The umbilical skin incisions were closed with Monocryl suture and skin glue by me. The vaginal instruments were removed by me and a vaginal sweep was completed by me. The surgery was performed by me with assistance other than the portions dictated as above. There were no qualified residents available for this procedure. All sponge lap and needle counts were correct and the patient was transferred to the recovery room in stable condition. Dr. Birmingham provided camera guidance, tissue manipulation and retraction during the procedure Grafts/Implants Used: none Procedure Start Time: 14:18 Procedure Stop Time: 15:36 Complications none Admit VTE Documentation VTE Present on Admission: No VTE Mechan Device Prophylaxis: SCD's VTE Pharm Prophylaxis ordered?: Yes
--- NOTE | 2023-06-05 15:49 | PCM.DC ---
Discharge Instructions Diet Discharge Diet: Light diet - advance as tolerated Activity Discharge Activity: May Shower and May Take a Tub Bath (in 6 weeks) May resume sexual activity in: 6-8 weeks and - (Nothing in your vagina for 6 weeks. No vaginal or anal intercourse for 6-8 weeks) Dressing / Incision Call your doctor if your incision/area has: Continuous Slow Oozing and Foul Smelling Discharge Call your doctor if you observe: Fever of 101 or Higher, Inability to urinate and Using more than 1 pad per hour Cleanse incision/area with: Soap & Water (your incisions have skin glue, it can get wet. Leave it on until it falls off) and - (Your incisions have skin glue, it can get wet, leave the glue on until it falls off. ) Follow Up Care Please Follow Up With: Yvette Rm MD When: With my office in 1-2 and 6 weeks or as needed. [phone]. Send a Values of n message for non-urgent issues Test Results: Test results from this visit will be discussed in further detail at your follow-up appointment, if applicable. Discharge Plan Admission Attending Provider: Yvette Rm Primary Care Provider: Marylou Horton Discharge Orders/Prescriptions Prescriptions: No Action ascorbic acid (vitamin C) 1,000 mg Capsule, Extended Release 1 cap PO DAILY loratadine [Claritin] 10 mg Tablet 10 mg PO PRN Referrals / Follow Up: Mahesh Bronson MD [Non-Staff] - Disposition Disposition (needs filled in before D/C Order can be placed): Home, Self Care
== END 2023-06-05 19:40 | disposition home or self-care (01) ==
LOC: SDC 10:43 → AC 10:45
PROVIDERS: Anesthesiology; PCP Family Medicine; Referring Provider Obstetrics & Gynecology; Visit Provider Obstetrics & Gynecology
PROC: 0UT94ZZ Resection of Uterus, Percutaneous Endoscopic Approach (ICD-10-PCS; CPT 58552; principal; 2023-06-05 13:00)
DX: N93.9 Abnormal uterine and vaginal bleeding, unspecified (principal); N99.85 Post endometrial ablation syndrome; N88.8 Other specified noninflammatory disorders of cervix uteri
CPT/HCPCS: 58552; 00840; 36415; 80053; 81025; 82962; 83735; 85027; 86850; 86900; 86901; 88302; 88305; 88307; J7120; J2405; J3475